=== PATIENT | male | born 1965 | race African-American/Black ===

== ENCOUNTER 2017-05-22 12:22 | Inpatient (IN) | payer MEDICARE, MEDICAID ==
[~2017-05-22] VITALS: Ht 168.9 cm; Wt 72.1 kg
[~2017-05-22 12:22] MED LIST: ABAC300T8 PO; ARIP10TA8 PO; BUPR-93 PO; DOLU50TA PO; LAMI300T PO; TRUVT PO
[2017-05-22 12:47] VITALS: BP 146/97
[2017-05-22] MEDS ORDERED: LOPERAMIDE HCL 2 MG CAPSULE PO PRN (13:15)
[2017-05-22] MEDS ORDERED: LORazepam 2 MG TABLET PO PRN (13:15)
[2017-05-22] MEDS ORDERED: MAG HYDROX/AL HYDROX/SIMETH ES 30 ML SUSPENSION UDCUP PO PRN (13:15)
[2017-05-22] MEDS ORDERED: PROMETHAZINE HCL 25 MG TABLET PO PRN (13:15)
[2017-05-22] MEDS ORDERED: MAGNESIUM HYDROXIDE SUSPENSION 30 ML UDCUP PO PRN (13:15)
[2017-05-22] MEDS ORDERED: ZOLPIDEM TARTRATE 10 MG TABLET PO PRN (13:15)
[2017-05-22] MEDS ORDERED: QUEtiapine FUMARATE 100 MG TABLET PO PRN (13:15)
[2017-05-22] MEDS ORDERED: AmLODIPine BESYLATE 5 MG TABLET PO SCH (14:45)
[2017-05-22 16:44] VITALS: BP 144/95
[2017-05-22 18:00] VITALS: BP 154/105
[2017-05-22] MEDS ORDERED: AmLODIPine BESYLATE 5 MG TABLET PO ONE (20:00)
[2017-05-22] MEDS ORDERED: CloNIDine HCL 0.1 MG TABLET PO PRN (20:00)
[2017-05-22 20:45] VITALS: BP 134/88
[2017-05-23 06:08] VITALS: BP 115/69
[2017-05-23 08:17] VITALS: BP 109/64
[2017-05-23] MEDS: AmLODIPine BESYLATE 10 MG TABLET PO SCH (08:45)
[2017-05-23] MEDS: EMTRICITABINE/TENOFOVIR 200-300 MG TABLET PO SCH (08:45)
[2017-05-23] MEDS: DOLUTEGRAVIR SODIUM 50 MG TABLET PO SCH (08:45)
[2017-05-23] MEDS: ABACAVIR SULFATE 300 MG TABLET PO SCH (08:45)
[2017-05-23 08:49] LABS: BASOPHILS % (AUTO) 0.6 % (0.0-2.0); EOSINOPHILS % (AUTO) 6.7 % (1.0-6.0); HEMATOCRIT 40.6 % (41-53); HEMOGLOBIN 13.2 g/dL (13.5-17.5); LYMPHOCYTES # (AUTO) 2.4 K/uL (1.0-4.8); MEAN CORPUSCULAR HEMOGLOBIN 25.8 pg (26.0-34.0); MEAN CORPUSCULAR HGB CONC 32.4 G/dL (31.0-37.0); MEAN CORPUSCULAR VOLUME 80 fL (80-100); MONOCYTES # (AUTO) 0.5 K/uL (0.1-1.0); MONOCYTES % (AUTO) 9.6 % (2.0-9.0); NEUTROPHILS % (AUTO) 38.1 % (40.0-70.0); PLATELET COUNT (AUTO) 267 K/uL (150-450); RED CELL DISTRIBUTION WIDTH 15.7 % (11.5-14.5)
[2017-05-23 09:45] LABS: ALANINE AMINOTRANSFERASE 34 U/L (12-78); ALBUMIN 3.4 g/dL (3.4-5.0); ALKALINE PHOSPHATASE 97 U/L (46-116); ANION GAP 7 mmol/L (8-16); ASPARTATE AMINOTRANSFERASE 23 U/L (15-37); BILIRUBIN,TOTAL 0.5 mg/dL (0.1-1.0); CARBON DIOXIDE 29 mmol/L (22-29); CHLORIDE 106 mmol/L (98-107); CHOL/HDL RATIO 2.7 (4.2-7.3); CHOLESTEROL 185 mg/dL (131-200); CREATININE 1.24 mg/dL (0.60-1.30); FREE T4 (FREE THYROXINE) 0.93 ng/dL (0.76-1.46); GLOMERULAR FILTR. RATE CALC > 60 mL/min (>60); GLUCOSE,RANDOM 73 mg/dL (70-110); HDL CHOLESTEROL 68 mg/dL (40-60); LDL CHOL (CALC.) 108 mg/dL (0-130); POTASSIUM 3.9 mmol/L (3.5-5.1); SODIUM SERUM 142 mmol/L (136-145); TOTAL PROTEIN, SERUM 7.2 g/dL (6.4-8.2); TRIGLYCERIDES 46 mg/dL (15-150); UREA NITROGEN, BLOOD 20 mg/dL (7-18)
[2017-05-23 16:10] VITALS: BP 119/77
[2017-05-23] MEDS: BuPROPion HCL 75 MG TABLET PO SCH (16:33)
[2017-05-23] MEDS: QUEtiapine FUMARATE 100 MG TABLET PO SCH (20:32)
[2017-05-24 06:24] VITALS: BP 104/64
[2017-05-24] MEDS ORDERED: LORazepam 2 MG/ML VIAL ONE (07:14)
[2017-05-24] MEDS ORDERED: HALOPERIDOL LACTATE 5 MG/ML VIAL ONE (07:15)
[2017-05-24] MEDS ORDERED: DiphenhydrAMINE HCL 50 MG/ML VIAL IM ONE (07:15)
[2017-05-24] MEDS ORDERED: DiphenhydrAMINE HCL 50 MG/ML VIAL ONE (07:15)
[2017-05-24] MEDS ORDERED: HALOPERIDOL LACTATE 5 MG/ML VIAL IM ONE (07:15)
[2017-05-24] MEDS ORDERED: LORazepam 2 MG/ML VIAL IM ONE (07:15)
[2017-05-24 08:30] VITALS: BP 116/62
[2017-05-24] MEDS: AmLODIPine BESYLATE 10 MG TABLET PO SCH (09:00)
[2017-05-24] MEDS: ARIPiprazole 10 MG TABLET PO SCH (09:00)
[2017-05-24] MEDS: DOLUTEGRAVIR SODIUM 50 MG TABLET PO SCH (09:00)
[2017-05-24] MEDS: BuPROPion HCL 75 MG TABLET PO SCH ×2 (09:00→17:13)
[2017-05-24] MEDS: EMTRICITABINE/TENOFOVIR 200-300 MG TABLET PO SCH (09:00)
[2017-05-24] MEDS: ABACAVIR SULFATE 300 MG TABLET PO SCH (09:00)
[2017-05-24 16:15] VITALS: BP 108/60
[2017-05-24] MEDS: QUEtiapine FUMARATE 100 MG TABLET PO SCH (20:12)
[2017-05-25 00:30] VITALS: BP 108/64
[2017-05-25 08:11] VITALS: BP 112/60
[2017-05-25] MEDS: ABACAVIR SULFATE 300 MG TABLET PO SCH (08:25)
[2017-05-25] MEDS: DOLUTEGRAVIR SODIUM 50 MG TABLET PO SCH (08:25)
[2017-05-25] MEDS: AmLODIPine BESYLATE 10 MG TABLET PO SCH (08:25)
[2017-05-25] MEDS: EMTRICITABINE/TENOFOVIR 200-300 MG TABLET PO SCH (08:25)
[2017-05-25] MEDS: BuPROPion HCL 75 MG TABLET PO SCH (08:25)
[2017-05-25] MEDS: ARIPiprazole 10 MG TABLET PO SCH (08:26)
[2017-05-25] MEDS ORDERED: QUET50TA PO (11:38)
[2017-05-25] MEDS ORDERED: BUPR100 PO (11:41)
[2017-05-25] MEDS ORDERED: AMLO-512 PO (11:58)
== END 2017-05-25 12:40 | disposition home or self-care (01) | DRG 885 ==
LOC: B2S 13:46 → B2X 05-23 09:33
PROVIDERS: ADMIT Psychiatry & Neurology Child & Adolescent Psychiatry; ATTEND Psychiatry & Neurology Child & Adolescent Psychiatry
DX: F20.0 Paranoid schizophrenia (principal); R45.851 Suicidal ideations; Z59.0 Homelessness; F19.20 Other psychoactive substance dependence, uncomplicated; F12.90 Cannabis use, unspecified, uncomplicated; F15.90 Other stimulant use, unspecified, uncomplicated; D64.9 Anemia, unspecified; E87.6 Hypokalemia; F17.200 Nicotine dependence, unspecified, uncomplicated; J44.9 Chronic obstructive pulmonary disease, unspecified; F10.10 Alcohol abuse, uncomplicated; I10 Essential (primary) hypertension; Z20.6 Contact with and (suspected) exposure to human immunodeficiency virus [HIV]; Z79.899 Other long term (current) drug therapy; Z85.46 Personal history of malignant neoplasm of prostate; Z90.89 Acquired absence of other organs; Z91.5 Personal history of self-harm
CPT/HCPCS: 84153; 84439; 84443; 86361; 87081; J1200; J1630; J2060

== ENCOUNTER 2017-07-05 17:58 | Inpatient (IN) | payer MEDICARE, MEDICAID ==
[~2017-07-05] VITALS: Ht 167.6 cm; Wt 73.2 kg
[~2017-07-05 17:58] MED LIST changes: +AMLO-512 PO; -BUPR-93 PO; +BUPR100 PO; +QUET50TA PO
[2017-07-05] MEDS ORDERED: ZOLPIDEM TARTRATE 10 MG TABLET PO PRN (18:30)
[2017-07-05] MEDS ORDERED: QUEtiapine FUMARATE 100 MG TABLET PO PRN (18:30)
[2017-07-05] MEDS ORDERED: LORazepam 2 MG TABLET PO PRN (18:30)
[2017-07-05 18:44] VITALS: BP 131/88
[2017-07-05 19:00] VITALS: BP 122/78
[2017-07-05] MEDS: QUEtiapine FUMARATE 200 MG TABLET PO SCH (20:52)
[2017-07-06 06:26] VITALS: BP 126/82
[2017-07-06 08:45] LABS: BASOPHILS % (AUTO) 0.3 % (0.0-2.0); EOSINOPHILS % (AUTO) 0.7 % (1.0-6.0); HEMATOCRIT 40.9 % (41-53); HEMOGLOBIN 13.5 g/dL (13.5-17.5); LYMPHOCYTES # (AUTO) 2.3 K/uL (1.0-4.8); LYMPHOCYTES % (AUTO) 33.2 % (22.0-44.0); MEAN CORPUSCULAR HEMOGLOBIN 25.9 pg (26.0-34.0); MEAN CORPUSCULAR HGB CONC 32.9 G/dL (31.0-37.0); MEAN CORPUSCULAR VOLUME 79 fL (80-100); MONOCYTES # (AUTO) 0.5 K/uL (0.1-1.0); MONOCYTES % (AUTO) 7.3 % (2.0-9.0); NEUTROPHILS # (AUTO) 4.1 K/uL (1.8-7.7); NEUTROPHILS % (AUTO) 58.5 % (40.0-70.0); PLATELET COUNT (AUTO) 323 K/uL (150-450); RED BLOOD CELL COUNT(AUTO) 5.19 MIL/uL (4.50-5.90); RED CELL DISTRIBUTION WIDTH 14.9 % (11.5-14.5)
[2017-07-06] MEDS: AmLODIPine BESYLATE 10 MG TABLET PO SCH (08:52)
[2017-07-06 08:54] VITALS: BP 117/77
[2017-07-06 09:08] LABS: HEMOGLOBIN A1C 5.7 % (4.5-6.2)
[2017-07-06] MEDS: EMTRICITABINE/TENOFOVIR 200-300 MG TABLET PO SCH (09:17)
[2017-07-06] MEDS: DOLUTEGRAVIR SODIUM 50 MG TABLET PO SCH (09:17)
[2017-07-06] MEDS: ABACAVIR SULFATE 300 MG TABLET PO SCH (09:17)
[2017-07-06 10:19] LABS: ALBUMIN 3.2 g/dL (3.4-5.0); BILIRUBIN,TOTAL 0.3 mg/dL (0.1-1.0); CHOL/HDL RATIO 3.1 (4.2-7.3); CREATININE 1.74 mg/dL (0.60-1.30); FREE T4 (FREE THYROXINE) 0.74 ng/dL (0.76-1.46); POTASSIUM 3.6 mmol/L (3.5-5.1); THYROID STIMULATING HORMONE 0.52 uIU/mL (0.36-3.74); TOTAL PROTEIN, SERUM 6.9 g/dL (6.4-8.2)
[2017-07-06] MEDS ORDERED: PROMETHAZINE HCL 25 MG TABLET PO PRN (12:15)
[2017-07-06] MEDS ORDERED: MAGNESIUM HYDROXIDE SUSPENSION 30 ML UDCUP PO PRN (12:15)
[2017-07-06] MEDS ORDERED: HydrOXYzine PAMOATE 50 MG CAPSULE PO PRN (12:15)
[2017-07-06] MEDS ORDERED: MAG HYDROX/AL HYDROX/SIMETH ES 30 ML SUSPENSION UDCUP PO PRN (12:15)
[2017-07-06] MEDS ORDERED: LOPERAMIDE HCL 2 MG CAPSULE PO PRN (12:15)
[2017-07-06] MEDS ORDERED: ACETAMINOPHEN 325 MG TABLET PO PRN (12:15)
[2017-07-06] MEDS ORDERED: TUBERCULIN, PURIFIED PROTEIN DERIVATIVE 5 TU/0.1 ML SYG ID ONE (12:15)
[2017-07-06] MEDS ORDERED: GuaiFENesin/D-METHORPHAN [SUGAR-FREE] 200-20MG/10 ML SYRUP UDCUP PO PRN (12:15)
[2017-07-06] MEDS: THIAMINE HCL 100 MG TABLET PO SCH (16:06)
[2017-07-06 16:19] VITALS: BP 121/72
[2017-07-06] MEDS: QUEtiapine FUMARATE 200 MG TABLET PO SCH (20:32)
[2017-07-07 07:03] VITALS: BP 120/86
[2017-07-07 08:44] VITALS: BP 116/81
[2017-07-07] MEDS: FOLIC ACID 1 MG TABLET PO SCH (09:10)
[2017-07-07] MEDS: NALTREXONE HCL 50 MG TABLET PO SCH (09:10)
[2017-07-07] MEDS: MULTIVITAMINS WITH MINERALS, THERAPEUTIC TABLET PO SCH (09:10)
[2017-07-07] MEDS: EMTRICITABINE/TENOFOVIR 200-300 MG TABLET PO SCH (09:10)
[2017-07-07] MEDS: ABACAVIR SULFATE 300 MG TABLET PO SCH (09:10)
[2017-07-07] MEDS: DOLUTEGRAVIR SODIUM 50 MG TABLET PO SCH (09:10)
[2017-07-07] MEDS: THIAMINE HCL 100 MG TABLET PO SCH ×2 (09:10→16:31)
[2017-07-07] MEDS: AmLODIPine BESYLATE 10 MG TABLET PO SCH (09:11)
[2017-07-07 16:33] VITALS: BP 131/81
[2017-07-07] MEDS ORDERED: QUEtiapine FUMARATE 200 MG TABLET PO SCH (21:00)
[2017-07-08 06:15] VITALS: BP 104/60
[2017-07-08 08:36] VITALS: BP 124/72
[2017-07-08] MEDS: AmLODIPine BESYLATE 10 MG TABLET PO SCH (08:45)
[2017-07-08] MEDS: EMTRICITABINE/TENOFOVIR 200-300 MG TABLET PO SCH (08:45)
[2017-07-08] MEDS: MULTIVITAMINS WITH MINERALS, THERAPEUTIC TABLET PO SCH (08:45)
[2017-07-08] MEDS: FOLIC ACID 1 MG TABLET PO SCH (08:45)
[2017-07-08] MEDS: THIAMINE HCL 100 MG TABLET PO SCH ×2 (08:45→16:15)
[2017-07-08] MEDS: ABACAVIR SULFATE 300 MG TABLET PO SCH (08:45)
[2017-07-08] MEDS: DOLUTEGRAVIR SODIUM 50 MG TABLET PO SCH (08:45)
[2017-07-08] MEDS: NALTREXONE HCL 50 MG TABLET PO SCH (08:45)
[2017-07-08 16:16] VITALS: BP 129/86
[2017-07-08] MEDS ORDERED: QUEtiapine FUMARATE 300 MG TABLET PO SCH (21:00)
[2017-07-09 05:40] VITALS: BP 119/80
[2017-07-09 07:58] VITALS: BP 122/77
[2017-07-09] MEDS: DOLUTEGRAVIR SODIUM 50 MG TABLET PO SCH (09:10)
[2017-07-09] MEDS: EMTRICITABINE/TENOFOVIR 200-300 MG TABLET PO SCH (09:10)
[2017-07-09] MEDS: THIAMINE HCL 100 MG TABLET PO SCH ×2 (09:10→17:00)
[2017-07-09] MEDS: NALTREXONE HCL 50 MG TABLET PO SCH (09:10)
[2017-07-09] MEDS: ABACAVIR SULFATE 300 MG TABLET PO SCH (09:10)
[2017-07-09] MEDS: MULTIVITAMINS WITH MINERALS, THERAPEUTIC TABLET PO SCH (09:10)
[2017-07-09] MEDS: FOLIC ACID 1 MG TABLET PO SCH (09:10)
[2017-07-09] MEDS: AmLODIPine BESYLATE 10 MG TABLET PO SCH (09:10)
[2017-07-09 16:15] VITALS: BP 120/78
[2017-07-09] MEDS: QUEtiapine FUMARATE 200 MG TABLET PO SCH (20:26)
[2017-07-10 07:11] VITALS: BP 119/73
[2017-07-10 08:44] VITALS: BP 100/79
[2017-07-10] MEDS: FOLIC ACID 1 MG TABLET PO SCH (09:36)
[2017-07-10] MEDS: THIAMINE HCL 100 MG TABLET PO SCH ×2 (09:36→16:28)
[2017-07-10] MEDS: MULTIVITAMINS WITH MINERALS, THERAPEUTIC TABLET PO SCH (09:36)
[2017-07-10] MEDS: NALTREXONE HCL 50 MG TABLET PO SCH (09:37)
[2017-07-10] MEDS: ABACAVIR SULFATE 300 MG TABLET PO SCH (09:37)
[2017-07-10] MEDS: EMTRICITABINE/TENOFOVIR 200-300 MG TABLET PO SCH (09:37)
[2017-07-10] MEDS: DOLUTEGRAVIR SODIUM 50 MG TABLET PO SCH (09:37)
[2017-07-10] MEDS: AmLODIPine BESYLATE 10 MG TABLET PO SCH (09:38)
[2017-07-10 16:27] VITALS: BP 128/79
[2017-07-10] MEDS: QUEtiapine FUMARATE 200 MG TABLET PO SCH (20:50)
[2017-07-11 06:18] VITALS: BP 103/61
[2017-07-11 08:36] VITALS: BP 104/68
[2017-07-11] MEDS: ABACAVIR SULFATE 300 MG TABLET PO SCH (09:26)
[2017-07-11] MEDS: AmLODIPine BESYLATE 10 MG TABLET PO SCH (09:27)
[2017-07-11] MEDS: THIAMINE HCL 100 MG TABLET PO SCH ×2 (09:27→16:47)
[2017-07-11] MEDS: FOLIC ACID 1 MG TABLET PO SCH (09:27)
[2017-07-11] MEDS: DOLUTEGRAVIR SODIUM 50 MG TABLET PO SCH (09:27)
[2017-07-11] MEDS: EMTRICITABINE/TENOFOVIR 200-300 MG TABLET PO SCH (09:27)
[2017-07-11] MEDS: MULTIVITAMINS WITH MINERALS, THERAPEUTIC TABLET PO SCH (09:28)
[2017-07-11] MEDS: NALTREXONE HCL 50 MG TABLET PO SCH (09:28)
[2017-07-11 16:42] VITALS: BP 110/67
[2017-07-11] MEDS: QUEtiapine FUMARATE 200 MG TABLET PO SCH (21:00)
[2017-07-12 05:59] VITALS: BP 105/67
[2017-07-12 08:36] VITALS: BP 100/68
[2017-07-12] MEDS: DOLUTEGRAVIR SODIUM 50 MG TABLET PO SCH (08:49)
[2017-07-12] MEDS: EMTRICITABINE/TENOFOVIR 200-300 MG TABLET PO SCH (08:50)
[2017-07-12] MEDS: ABACAVIR SULFATE 300 MG TABLET PO SCH (08:50)
[2017-07-12] MEDS: FOLIC ACID 1 MG TABLET PO SCH (08:50)
[2017-07-12] MEDS: AmLODIPine BESYLATE 10 MG TABLET PO SCH (08:50)
[2017-07-12] MEDS: MULTIVITAMINS WITH MINERALS, THERAPEUTIC TABLET PO SCH (08:50)
[2017-07-12] MEDS: NALTREXONE HCL 50 MG TABLET PO SCH (08:50)
[2017-07-12] MEDS: THIAMINE HCL 100 MG TABLET PO SCH ×2 (08:50→16:09)
[2017-07-12 17:59] VITALS: BP 110/66
[2017-07-12] MEDS: QUEtiapine FUMARATE 200 MG TABLET PO SCH (20:47)
[2017-07-13 06:48] VITALS: BP 110/79
[2017-07-13 08:41] VITALS: BP 108/68
[2017-07-13] MEDS: ABACAVIR SULFATE 300 MG TABLET PO SCH (09:08)
[2017-07-13] MEDS: EMTRICITABINE/TENOFOVIR 200-300 MG TABLET PO SCH (09:08)
[2017-07-13] MEDS: AmLODIPine BESYLATE 10 MG TABLET PO SCH (09:09)
[2017-07-13] MEDS: THIAMINE HCL 100 MG TABLET PO SCH ×2 (09:09→16:29)
[2017-07-13] MEDS: MULTIVITAMINS WITH MINERALS, THERAPEUTIC TABLET PO SCH (09:09)
[2017-07-13] MEDS: NALTREXONE HCL 50 MG TABLET PO SCH (09:09)
[2017-07-13] MEDS: FOLIC ACID 1 MG TABLET PO SCH (09:09)
[2017-07-13] MEDS: DOLUTEGRAVIR SODIUM 50 MG TABLET PO SCH (09:10)
[2017-07-13 16:18] VITALS: BP 123/75
[2017-07-13] MEDS: QUEtiapine FUMARATE 200 MG TABLET PO SCH (20:17)
[2017-07-14 01:22] VITALS: BP 105/71
[2017-07-14 08:18] VITALS: BP 116/70
[2017-07-14] MEDS: NALTREXONE HCL 50 MG TABLET PO SCH (09:24)
[2017-07-14] MEDS: FOLIC ACID 1 MG TABLET PO SCH (09:24)
[2017-07-14] MEDS: ABACAVIR SULFATE 300 MG TABLET PO SCH (09:24)
[2017-07-14] MEDS: AmLODIPine BESYLATE 10 MG TABLET PO SCH (09:25)
[2017-07-14] MEDS: MULTIVITAMINS WITH MINERALS, THERAPEUTIC TABLET PO SCH (09:25)
[2017-07-14] MEDS: EMTRICITABINE/TENOFOVIR 200-300 MG TABLET PO SCH (09:25)
[2017-07-14] MEDS: THIAMINE HCL 100 MG TABLET PO SCH ×2 (09:25→17:29)
[2017-07-14] MEDS: DOLUTEGRAVIR SODIUM 50 MG TABLET PO SCH (09:25)
[2017-07-14] MEDS ORDERED: QUET200T29 PO (16:14)
[2017-07-14] MEDS ORDERED: NALT50TA PO (16:14)
[2017-07-14 17:45] VITALS: BP 124/65
[2017-07-14] MEDS: QUEtiapine FUMARATE 200 MG TABLET PO SCH (20:45)
[2017-07-15] MEDS ORDERED: TRUVT PO (04:36)
[2017-07-15] MEDS ORDERED: NALT50TA6 PO (04:38)
[2017-07-15] MEDS ORDERED: QUET200T PO (04:38)
[2017-07-15 06:29] VITALS: BP 120/81
== END 2017-07-15 07:15 | disposition home or self-care (01) | DRG 885 ==
LOC: B2S 18:30
PROVIDERS: ADMIT Psychiatry & Neurology Psychiatry; ATTEND Psychiatry & Neurology Psychiatry
DX: F25.9 Schizoaffective disorder, unspecified (principal); R45.851 Suicidal ideations; Z21 Asymptomatic human immunodeficiency virus [HIV] infection status; F17.210 Nicotine dependence, cigarettes, uncomplicated; I10 Essential (primary) hypertension; J45.909 Unspecified asthma, uncomplicated; Z85.46 Personal history of malignant neoplasm of prostate; Z91.19 Patient's noncompliance with other medical treatment and regimen; Z91.5 Personal history of self-harm; Z79.899 Other long term (current) drug therapy
CPT/HCPCS: 83036; 84439; 84443

== ENCOUNTER 2019-03-05 03:30 | Inpatient (IN) | payer MEDICARE, MEDICAID ==
[~2019-03-05] VITALS: Ht 167.6 cm; Wt 75.4 kg
[~2019-03-05 03:30] MED LIST changes: +ABAC300T2 PO; -ABAC300T8 PO; -AMLO-512 PO; +AMLO10TA7 PO; -ARIP10TA8 PO; -BUPR100 PO; +NALT50TA PO; +NEOSOS OU; +PALI156D IM; -QUET50TA PO
[2019-03-05] MEDS ORDERED: HALOPERIDOL 5 MG TABLET PO PRN (04:15)
[2019-03-05] MEDS ORDERED: LORazepam 2 MG TABLET PO PRN (04:15)
[2019-03-05] MEDS ORDERED: ZOLPIDEM TARTRATE 10 MG TABLET PO PRN (04:15)
[2019-03-05 05:00] VITALS: BP 132/64
[2019-03-05] MEDS ORDERED: IBUPROFEN 400 MG TABLET PO PRN (05:45)
[2019-03-05] MEDS ORDERED: ONDANSETRON HCL 4 MG TABLET PO PRN (05:45)
[2019-03-05] MEDS ORDERED: NICOTINE 14 MG/24 HOUR PATCH TD PRN (05:45)
[2019-03-05] MEDS ORDERED: DOCUSATE SODIUM 100 MG CAPSULE PO PRN (05:45)
[2019-03-05] MEDS ORDERED: MAG HYDROX/AL HYDROX/SIMETH ES 30 ML SUSPENSION UDCUP PO PRN (05:45)
[2019-03-05] MEDS ORDERED: CloNIDine HCL 0.1 MG TABLET PO PRN (05:45)
[2019-03-05] MEDS ORDERED: ACETAMINOPHEN 325 MG TABLET PO PRN (05:45)
[2019-03-05] MEDS ORDERED: LOPERAMIDE HCL 2 MG CAPSULE PO PRN (05:45)
[2019-03-05] MEDS ORDERED: ALBUTEROL SULFATE HFA 90 MCG/PUFF 8 GM INHALER IH PRN (05:45)
[2019-03-05] MEDS ORDERED: MAGNESIUM HYDROXIDE SUSPENSION 30 ML UDCUP PO PRN (05:45)
[2019-03-05] MEDS ORDERED: GuaiFENesin/D-METHORPHAN [SUGAR-FREE] 200-20MG/10 ML SYRUP UDCUP PO PRN (05:45)
[2019-03-05] MEDS ORDERED: PETROLATUM,WHITE 28 GM JELLY TP PRN (05:45)
[2019-03-05 08:00] VITALS: BP 108/67
[2019-03-05] MEDS: ARIPiprazole 15 MG TABLET PO SCH (11:55)
[2019-03-05] MEDS: BuPROPion HCL XL 150 MG ER TABLET PO SCH (11:55)
[2019-03-05 16:08] VITALS: BP 126/79
[2019-03-05] MEDS: QUEtiapine FUMARATE 100 MG TABLET PO SCH (20:16)
[2019-03-06 04:47] VITALS: BP 122/84
[2019-03-06 08:20] LABS: BASOPHILS % (AUTO) 0.4 % (0.0-2.0); EOSINOPHILS % (AUTO) 0.7 % (1.0-6.0); HEMATOCRIT 40.2 % (41-53); HEMOGLOBIN 12.9 g/dL (13.5-17.5); LYMPHOCYTES # (AUTO) 1.8 K/uL (1.0-4.8); LYMPHOCYTES % (AUTO) 38.6 % (22.0-44.0); MEAN CORPUSCULAR HEMOGLOBIN 25.8 pg (26.0-34.0); MEAN CORPUSCULAR VOLUME 81 fL (80-100); MONOCYTES # (AUTO) 0.5 K/uL (0.1-1.0); MONOCYTES % (AUTO) 10.8 % (2.0-9.0); NEUTROPHILS # (AUTO) 2.3 K/uL (1.8-7.7); NEUTROPHILS % (AUTO) 49.5 % (40.0-70.0); PLATELET COUNT (AUTO) 271 K/uL (150-450); RED BLOOD CELL COUNT(AUTO) 4.98 MIL/uL (4.50-5.90); RED CELL DISTRIBUTION WIDTH 15.2 % (11.5-14.5)
[2019-03-06] MEDS: BuPROPion HCL XL 150 MG ER TABLET PO SCH (08:50)
[2019-03-06] MEDS: ARIPiprazole 15 MG TABLET PO SCH (08:51)
[2019-03-06 09:11] LABS: HEMOGLOBIN A1C 5.7 % (4.5-6.2)
[2019-03-06 09:20] LABS: ALANINE AMINOTRANSFERASE 18 U/L (12-78); ALKALINE PHOSPHATASE 101 U/L (46-116); ANION GAP 9 mmol/L (8-16); ASPARTATE AMINOTRANSFERASE 13 U/L (15-37); BILIRUBIN,TOTAL 0.3 mg/dL (0.1-1.0); CALCIUM, TOTAL 8.3 mg/dL (8.8-10.5); CARBON DIOXIDE 27 mmol/L (22-29); CHLORIDE 104 mmol/L (98-107); CHOLESTEROL 133 mg/dL (131-200); GLOMERULAR FILTR. RATE CALC > 60 mL/min (>60); GLUCOSE,RANDOM 96 mg/dL (70-110); HDL CHOLESTEROL 44 mg/dL (40-60); LDL CHOL (CALC.) 74 mg/dL (0-130); POTASSIUM 3.5 mmol/L (3.5-5.1); SODIUM SERUM 140 mmol/L (136-145); THYROID STIMULATING HORMONE 0.35 uIU/mL (0.36-3.74); TOTAL PROTEIN, SERUM 7.1 g/dL (6.4-8.2); TRIGLYCERIDES 74 mg/dL (15-150); UREA NITROGEN, BLOOD 10 mg/dL (7-18)
[2019-03-06 16:08] VITALS: BP 117/74
[2019-03-06] MEDS: QUEtiapine FUMARATE 100 MG TABLET PO SCH (20:57)
[2019-03-07 08:14] VITALS: BP 112/65
[2019-03-07] MEDS: ARIPiprazole 15 MG TABLET PO SCH (09:22)
[2019-03-07] MEDS: BuPROPion HCL XL 150 MG ER TABLET PO SCH (09:22)
[2019-03-07 16:09] VITALS: BP 114/64
[2019-03-07] MEDS: QUEtiapine FUMARATE 100 MG TABLET PO SCH (20:31)
[2019-03-08 06:24] VITALS: BP 112/71
[2019-03-08] MEDS: BuPROPion HCL XL 150 MG ER TABLET PO SCH (08:17)
[2019-03-08] MEDS: ARIPiprazole 15 MG TABLET PO SCH (08:17)
[2019-03-08 08:41] VITALS: BP 113/72
[2019-03-08 16:16] VITALS: BP 142/82
[2019-03-08] MEDS: QUEtiapine FUMARATE 100 MG TABLET PO SCH (20:09)
[2019-03-09 06:59] VITALS: BP 112/68
[2019-03-09 08:25] VITALS: BP 125/76
[2019-03-09] MEDS: ARIPiprazole 15 MG TABLET PO SCH (09:40)
[2019-03-09] MEDS: BuPROPion HCL XL 150 MG ER TABLET PO SCH (09:40)
[2019-03-09 16:10] VITALS: BP 120/74
[2019-03-09] MEDS: QUEtiapine FUMARATE 100 MG TABLET PO SCH (21:00)
[2019-03-10 06:30] VITALS: BP 119/72
[2019-03-10] MEDS: ARIPiprazole 15 MG TABLET PO SCH (09:00)
[2019-03-10] MEDS: BuPROPion HCL XL 150 MG ER TABLET PO SCH (09:01)
[2019-03-10] MEDS ORDERED: QUET100T PO ×2 (14:31→14:38)
[2019-03-10] MEDS ORDERED: ARIP15TA2 PO ×2 (14:31→14:38)
[2019-03-10] MEDS ORDERED: BUPR-93 PO ×2 (14:31→14:38)
== END 2019-03-10 15:20 | disposition home or self-care (01) | DRG 885 ==
LOC: B3A 03:30
PROVIDERS: ATTEND Psychiatry & Neurology Child & Adolescent Psychiatry
DX: F25.1 Schizoaffective disorder, depressive type (principal); R45.851 Suicidal ideations; J44.9 Chronic obstructive pulmonary disease, unspecified; C61 Malignant neoplasm of prostate; I10 Essential (primary) hypertension; F15.10 Other stimulant abuse, uncomplicated; F17.200 Nicotine dependence, unspecified, uncomplicated; F94.0 Selective mutism; G47.00 Insomnia, unspecified; Z59.0 Homelessness; Z79.899 Other long term (current) drug therapy; Z82.49 Family history of ischemic heart disease and other diseases of the circulatory system; Z85.46 Personal history of malignant neoplasm of prostate
CPT/HCPCS: 83036; 84439; 84443

== ENCOUNTER 2019-04-07 19:37 | Inpatient (IN) | payer MEDICARE, MEDICAID ==
[~2019-04-07] VITALS: Ht 167.6 cm; Wt 71.7 kg
[~2019-04-07 19:37] MED LIST changes: -ABAC300T2 PO; -AMLO10TA7 PO; +ARIP15TA2 PO; +BUPR-93 PO; -DOLU50TA PO; -LAMI300T PO; -NALT50TA PO; -NEOSOS OU; -PALI156D IM; +QUET100T PO; -TRUVT PO
[2019-04-07] MEDS ORDERED: ZOLPIDEM TARTRATE 10 MG TABLET PO PRN (23:45)
[2019-04-07] MEDS ORDERED: LORazepam 2 MG TABLET PO PRN (23:45)
[2019-04-07] MEDS ORDERED: HALOPERIDOL 5 MG TABLET PO PRN (23:45)
[2019-04-08 01:11] VITALS: BP 138/84
[2019-04-08] MEDS ORDERED: INFLUENZA VIRUS VACCINE QVS 2019-20 (3YR+)/PF 60 MCG/0.5 ML SYRINGE IM ONE (03:45)
[2019-04-08] MEDS ORDERED: PNEUMOCOCCAL VACCINE POLYVALENT 0.5 ML VIAL [PPSV23] IM ONE (03:45)
[2019-04-08 07:27] LABS: BASOPHILS % (AUTO) 0.5 % (0.0-2.0); EOSINOPHILS % (AUTO) 2.9 % (1.0-6.0); HEMATOCRIT 37.1 % (41-53); HEMOGLOBIN 12.3 g/dL (13.5-17.5); LYMPHOCYTES # (AUTO) 1.7 K/uL (1.0-4.8); LYMPHOCYTES % (AUTO) 39.2 % (22.0-44.0); MEAN CORPUSCULAR HEMOGLOBIN 26.2 pg (26.0-34.0); MEAN CORPUSCULAR HGB CONC 33.1 G/dL (31.0-37.0); MEAN CORPUSCULAR VOLUME 79 fL (80-100); MONOCYTES # (AUTO) 0.5 K/uL (0.1-1.0); MONOCYTES % (AUTO) 10.4 % (2.0-9.0); NEUTROPHILS # (AUTO) 2.1 K/uL (1.8-7.7); PLATELET COUNT (AUTO) 321 K/uL (150-450); RED BLOOD CELL COUNT(AUTO) 4.68 MIL/uL (4.50-5.90); RED CELL DISTRIBUTION WIDTH 15.2 % (11.5-14.5)
[2019-04-08 07:56] LABS: ALANINE AMINOTRANSFERASE 20 U/L (12-78); ALBUMIN 2.9 g/dL (3.4-5.0); ALKALINE PHOSPHATASE 108 U/L (46-116); ANION GAP 6 mmol/L (8-16); ASPARTATE AMINOTRANSFERASE 15 U/L (15-37); BILIRUBIN,TOTAL 0.2 mg/dL (0.1-1.0); CALCIUM, TOTAL 8.6 mg/dL (8.8-10.5); CARBON DIOXIDE 29 mmol/L (22-29); CHLORIDE 109 mmol/L (98-107); CHOL/HDL RATIO 2.8 (4.2-7.3); CHOLESTEROL 129 mg/dL (131-200); CREATININE 1.21 mg/dL (0.60-1.30); FREE T4 (FREE THYROXINE) 0.76 ng/dL (0.76-1.46); GLOMERULAR FILTR. RATE CALC > 60 mL/min (>60); GLUCOSE,RANDOM 100 mg/dL (70-110); HDL CHOLESTEROL 46 mg/dL (40-60); LDL CHOL (CALC.) 73 mg/dL (0-130); POTASSIUM 3.9 mmol/L (3.5-5.1); SODIUM SERUM 144 mmol/L (136-145); TOTAL PROTEIN, SERUM 6.6 g/dL (6.4-8.2); TRIGLYCERIDES 48 mg/dL (15-150); UREA NITROGEN, BLOOD 11 mg/dL (7-18)
[2019-04-08 08:15] VITALS: BP 103/55
[2019-04-08] MEDS ORDERED: LOPERAMIDE HCL 2 MG CAPSULE PO PRN (08:15)
[2019-04-08] MEDS ORDERED: ACETAMINOPHEN 325 MG TABLET PO PRN (08:15)
[2019-04-08] MEDS ORDERED: MAGNESIUM HYDROXIDE SUSPENSION 30 ML UDCUP PO PRN (08:15)
[2019-04-08] MEDS ORDERED: ONDANSETRON HCL 4 MG TABLET PO PRN (08:15)
[2019-04-08] MEDS ORDERED: DOCUSATE SODIUM 100 MG CAPSULE PO PRN (08:15)
[2019-04-08] MEDS ORDERED: ALBUTEROL SULFATE HFA 90 MCG/PUFF 8 GM INHALER IH PRN (08:15)
[2019-04-08] MEDS ORDERED: NICOTINE 14 MG/24 HOUR PATCH TD PRN (08:15)
[2019-04-08] MEDS ORDERED: GuaiFENesin/D-METHORPHAN [SUGAR-FREE] 200-20MG/10 ML SYRUP UDCUP PO PRN (08:15)
[2019-04-08] MEDS ORDERED: MAG HYDROX/AL HYDROX/SIMETH ES 30 ML SUSPENSION UDCUP PO PRN (08:15)
[2019-04-08] MEDS ORDERED: CloNIDine HCL 0.1 MG TABLET PO PRN (08:15)
[2019-04-08] MEDS ORDERED: IBUPROFEN 400 MG TABLET PO PRN (08:15)
[2019-04-08] MEDS ORDERED: PETROLATUM,WHITE 28 GM JELLY TP PRN (08:15)
[2019-04-08] MEDS: BuPROPion HCL XL 150 MG ER TABLET PO SCH (13:22)
[2019-04-08] MEDS: ARIPiprazole 10 MG TABLET PO SCH (13:22)
[2019-04-08 16:03] VITALS: BP 118/64
[2019-04-09 08:04] VITALS: BP 137/83
[2019-04-09] MEDS: BuPROPion HCL XL 150 MG ER TABLET PO SCH (09:10)
[2019-04-09] MEDS: ARIPiprazole 10 MG TABLET PO SCH (09:10)
[2019-04-09 16:02] VITALS: BP 119/76
[2019-04-10 01:05] VITALS: BP 127/79
[2019-04-10 08:14] VITALS: BP 130/80
[2019-04-10] MEDS: BuPROPion HCL XL 150 MG ER TABLET PO SCH (08:23)
[2019-04-10] MEDS: ARIPiprazole 10 MG TABLET PO SCH (08:23)
[2019-04-10 16:09] VITALS: BP 146/83
[2019-04-10 19:12] VITALS: BP 142/64
[2019-04-11 06:50] VITALS: BP 112/60
[2019-04-11 08:22] VITALS: BP 119/72
[2019-04-11] MEDS: ARIPiprazole 10 MG TABLET PO SCH (08:29)
[2019-04-11] MEDS: BuPROPion HCL XL 150 MG ER TABLET PO SCH (08:29)
[2019-04-11 16:04] VITALS: BP 128/66
[2019-04-12 07:00] VITALS: BP 132/79
[2019-04-12 08:05] VITALS: BP 136/80
[2019-04-12] MEDS: ARIPiprazole 10 MG TABLET PO SCH (09:21)
[2019-04-12] MEDS: BuPROPion HCL XL 150 MG ER TABLET PO SCH (09:21)
[2019-04-12] MEDS ORDERED: ARIP10TA8 PO (15:01)
== END 2019-04-12 15:50 | disposition home or self-care (01) | DRG 885 ==
LOC: B3A 04-08 00:33 → B2X 04-08 09:08
DX: F25.1 Schizoaffective disorder, depressive type (principal); R45.851 Suicidal ideations; D64.9 Anemia, unspecified; D72.819 Decreased white blood cell count, unspecified; F19.10 Other psychoactive substance abuse, uncomplicated; I10 Essential (primary) hypertension; J44.9 Chronic obstructive pulmonary disease, unspecified; Z21 Asymptomatic human immunodeficiency virus [HIV] infection status; Z59.0 Homelessness; Z79.899 Other long term (current) drug therapy; Z81.8 Family history of other mental and behavioral disorders; Z85.46 Personal history of malignant neoplasm of prostate; Z91.5 Personal history of self-harm; Z28.21 Immunization not carried out because of patient refusal; Z71.51 Drug abuse counseling and surveillance of drug abuser
CPT/HCPCS: 83036; 84439; 84443; 90686; 90732

== ENCOUNTER 2024-08-24 22:43 | Emergency (ER) | payer MEDICARE, MEDICAID ==
[~2024-08-24] VITALS: Ht 172.7 cm; Wt 77.3 kg
[~2024-08-24 22:43] MED LIST changes: +ARIP10TA38 PO; -ARIP15TA2 PO; +BUPR-49 PO; -BUPR-93 PO; -QUET100T PO
[2024-08-24 23:06] VITALS: TEMP 98.2
[2024-08-25] MEDS: SULFAMETHOX/TRIMETH DS 800-160 MG/TABLET PO ONE (02:43)
[2024-08-25] MEDS: HYDROCODONE/ACETAMINOPHEN 5-325 MG TABLET PO ONE (02:43)
[2024-08-25] MEDS ORDERED: SULF-261 PO (03:55)
[2024-08-25 04:00] VITALS: BP 129/80; PULSE 80; RESP 16; O2SAT 99
== END 2024-08-25 05:03 | disposition home or self-care (01) ==
LOC: EMS 22:46
DX: L02.31 Cutaneous abscess of buttock (principal); I10 Essential (primary) hypertension; F20.9 Schizophrenia, unspecified; Z79.899 Other long term (current) drug therapy
CPT/HCPCS: 99283